=== PATIENT | female | born 1975 | race Caucasian/White ===

== ENCOUNTER → 2017-10-18 | Outpatient (CLI) | payer BC ==
[~2017-10-18] MED LIST: CLON0.5T3 PO; CYCL10TA9 PO; CYCL30CA PO; DICL50TA4 PO; ESCI20TA2 PO; FOLI0.4T2 PO; HYDR-3448 PO; HYDR-3720 PO; HYDR1TAB66 PO; HYDR1TAB71 PO; LEVE100015 PO; LEVE500T99 PO; MULT-608 PO; NAPR-243 PO; OXYC-12 PO; PNV71TAB2 PO; TRM50T PO
== END ==
LOC: CARD 11:30
PROVIDERS: ATTEND Physician Assistant
DX: Q79.6 Ehlers-Danlos syndromes (principal); I51.7 Cardiomegaly; I34.0 Nonrheumatic mitral (valve) insufficiency; E66.9 Obesity, unspecified
CPT/HCPCS: 93306

== ENCOUNTER 2021-03-19 05:43 | Outpatient (CLI) | payer BC ==
[~2021-03-19] VITALS: Ht 177.8 cm; Wt 112.6 kg
[2021-03-19] MEDS ORDERED: CYCL10TA9 PO (11:02)
[2021-03-19] MEDS ORDERED: CELE100C84 PO (11:02)
[2021-03-19] MEDS ORDERED: ALPR0.5T7 PO (11:02)
[2021-03-19] MEDS ORDERED: LEVE750T5 PO (11:02)
[2021-03-19] MEDS ORDERED: ESCI-2 PO (11:02)
[2021-03-20] MEDS ORDERED: ACHD5005 PO (12:34)
== END 2021-03-19 11:06 | disposition home or self-care (01) ==
LOC: PREOP 05:43
PROVIDERS: ATTEND Surgery
DX: Z01.818 Encounter for other preprocedural examination (principal)

== ENCOUNTER 2021-03-20 10:09 | Day surgery (SDC) | payer BC ==
[~2021-03-20] VITALS: Ht 177.8 cm; Wt 112.6 kg
[2021-03-20] VITALS (12 sets, daily range): BP systolic 117–151; BP diastolic 66–102
[~2021-03-20 10:09] MED LIST changes: +ALPR0.5T7 PO; +CELE100C84 PO; +ESCI-2 PO; +LEVE750T5 PO
[2021-03-20] MEDS ORDERED: LACTATED RINGERS 1,000 ML IV PRN (10:45)
[2021-03-20] MEDS ORDERED: ceFAZolin 2 GM IV Premixed 50 ML IV ONE (10:45)
[2021-03-20] MEDS ORDERED: LIDOCAINE/EPI 1%-1:200,000 (XYLOCAINE) 30 ML VIAL ONE (10:53)
[2021-03-20] MEDS ORDERED: fentaNYL INJ 100 MCG/2 ML AMP ONE (11:08)
[2021-03-20] MEDS ORDERED: MIDAZOLAM 2 MG/2 ML (VERSED) VIAL ONE (11:08)
[2021-03-20] MEDS ORDERED: LIDOCAINE PF 2% 5 ML (XYLOCAINE) VIAL ONE (11:08)
[2021-03-20] MEDS ORDERED: SEVOFLURANE (ULTANE) 15 ML INHAL SOLN ONE (11:08)
[2021-03-20] MEDS ORDERED: proPOfol 200 MG/20 ML (DIPRIVAN) VIAL IV ONE (11:08)
--- NOTE | 2021-03-20 12:28 | Progress Note-Pre Operative ---
Pre-Operative Progress Note H&P Reviewed The H&P was reviewed, patient examined and no changes noted. Date Seen by Provider: Mar 20, 2021 Time Seen by Provider: 10: Date H&P Reviewed: Mar 20, 2021 Time H&P Reviewed: : Pre-Operative Diagnosis: sx bilat elbow, abd x2, and back lesions CHICHI KIM MD Mar 20, 2021 12:28
--- NOTE | 2021-03-20 12:31 | Progress Note-Post Operative ---
Post-Operative Progess Note Surgeon (s)/Clinical Laboratory Service Teacher (s) Surgeon CHICHI KIM MD Clinical Laboratory Service Teacher: none Pre-Operative Diagnosis sx bilat elbow, abd x2, and back lesions Post-Operative Diagnosis same, each subcutaneous and 1cm Procedure & Operative Findings Date of Procedure 03/20/21 Procedure Performed/Findings excision subcutaneous bilat elbow lesion, abd lesion x2, back lesion. Anesthesia Type general LMA with local Estimated Blood Loss Estimated blood loss (mL): minimal Specimens/Packing Specimens Removed lesions stated above. CHICHI KIM MD Mar 20, 2021 12:31
[2021-03-20] MEDS ORDERED: ACHD5005 PO (12:34)
--- NOTE | 2021-03-20 12:35 | Discharge Inst-Surgical ---
D/C Lap Instructions-JULIO New, Converted, or Re-Newed RX: RX on Chart Follow Up Appt in 1 week Activity as tolerated Regular Diet Symptoms to Report: Fever over 101 degree F, Nausea/Vomiting Infection Signs and Symptoms to report: Increased redness, Foul odor of wound, Increased drainage Bathing instructions: May shower Operative Area Clean/Dry; Keep incision clean/dry If any problems/questions: Contact your physician or go to Emergency Room CHICHI KIM MD Mar 20, 2021 12:35
[2021-03-20] MEDS ORDERED: ACETAMINOPHEN 325 MG TABLET PO PRN (12:45)
[2021-03-20] MEDS ORDERED: fentaNYL INJ 100 MCG/2 ML AMP IVP PRN (12:45)
[2021-03-20] MEDS ORDERED: HYDROcodone/APAP 5 MG/325 MG (LORTAB) TAB PO PRN (12:45)
--- NOTE | 2021-03-20 13:15 | Anesthesia-General Post-Op ---
General Patient Condition Mental Status/LOC: Same as Preop Cardiovascular: Satisfactory Nausea/Vomiting: Absent Respiratory: Satisfactory Pain: Controlled Complications: Absent Post Op Complications Complications None Follow Up Care/Instructions Patient Instructions None needed. Anesthesia/Patient Condition Patient Condition Patient is doing well, no complaints, stable vital signs, no apparent adverse anesthesia problems. No complications reported per nursing. THELMA EMERSON CRNA Mar 20, 2021 13:15
--- NOTE | 2021-03-20 18:23 | OPERATIVE REPORT ---
DATE OF SERVICE: 03/20/2021 ATTENDING PRIMARY CARE PHYSICIAN: Courtney Bella MD PREOPERATIVE DIAGNOSIS: Symptomatic lesions, bilateral elbows, abdominal wall x2, upper back. POSTOPERATIVE DIAGNOSIS: Symptomatic lesions, bilateral elbows, abdominal wall x2, upper back, likely benign symptomatic lipomas all 1 cm in size. PROCEDURE: Excision of subcutaneous lesions, 1 cm in size, bilateral elbows abdominal wall x2, back x1. SURGEON: Chichi Kim MD ANESTHESIA: General laryngeal mask airway with local. ESTIMATED BLOOD LOSS: Minimal. FINDINGS: Same as postoperative diagnosis. DISPOSITION: The patient tolerated the procedure well. INDICATIONS: The patient is a 45-year-old female known to us. 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 She has had these symptomatic was removed in the past. She has developed several symptomatic lesions again, bilateral elbows along the extensor surface, two of the abdominal wall, one superior and one inferior as well as one of the upper back. These appeared to be again benign lipomas, each 1 cm in size. Each location was prepped and draped in standard surgical fashion and 1% lidocaine with epinephrine was used to anesthetize the overlying skin. Skin incisions were made along the glabellar lines and the lesion identified and dissected out using blunt dissection as well as electrocautery and specimens were sent to pathology. Each skin incision was then closed using 0 Prolene interrupted sutures. Wounds were then cleaned and covered with Band-Aids. The patient tolerated the procedure well. We will start IV normal pain medication as well as a clear liquid diet. Once he is tolerating clears, has good pain control with oral pain medications, ambulating well, we will discharge her home. She will be instructed to keep the areas clean and dry. Job ID: [id number] DocumentID: [id number] Dictated Date: 03/20/2021 12:40:45 [employer] Leader Date: 03/20/2021 18:23:15 Dictated By: CHICHI KIM MD [facility]
== END 2021-03-20 15:22 | disposition home or self-care (01) ==
LOC: SDC 10:09
PROVIDERS: ATTEND Surgery
DX: M79.89 Other specified soft tissue disorders (principal); D17.22 Benign lipomatous neoplasm of skin and subcutaneous tissue of left arm; D17.21 Benign lipomatous neoplasm of skin and subcutaneous tissue of right arm; G40.909 Epilepsy, unspecified, not intractable, without status epilepticus; Q87.40 Marfan syndrome, unspecified; Q79.60 Ehlers-Danlos syndrome, unspecified; F17.200 Nicotine dependence, unspecified, uncomplicated; F41.9 Anxiety disorder, unspecified; F32.A Depression, unspecified; Z79.891 Long term (current) use of opiate analgesic; Z79.899 Other long term (current) drug therapy; I95.1 Orthostatic hypotension; Z83.3 Family history of diabetes mellitus; Z80.3 Family history of malignant neoplasm of breast
CPT/HCPCS: 87081

== ENCOUNTER → 2021-08-07 | Outpatient (CLI) | payer BC ==
[~2021-08-07] MED LIST changes: +ACHD5005 PO; +CYCL10TA25 PO
== END ==
LOC: CARD 09:19
PROVIDERS: ATTEND Internal Medicine Cardiovascular Disease
DX: I51.7 Cardiomegaly (principal)
CPT/HCPCS: 93306

== ENCOUNTER → 2021-08-12 | Outpatient (CLI) | payer BC ==
[~2021-08-12] MED LIST changes: +CATHETER FLUSH 10 ML SYR IVP PRN
[2021-08-12 13:40] VITALS: BP 117/66
--- NOTE | 2021-08-12 15:57 | Cardiology Stress Test Report ---
Stress Test Report Date of Procedure/Referring: Date of Procedure: Aug 12, 2021 PCP Michelet Quiñones MD Admitting Physician Courtney Bella MD Indications: Palpitation Baseline Heart Rate: 64 Baseline Blood Pressure: Blood Pressure Systolic: 117 Blood Pressure Diastolic: 66 Vital Signs Date Time Temp Pulse Resp B/P (MAP) Pulse Ox O2 Delivery O2 Flow Rate FiO2 08/12/21 13:40 64 117/66 (83) Baseline Vital Signs Vital Signs Date Time Temp Pulse Resp B/P (MAP) Pulse Ox O2 Delivery O2 Flow Rate FiO2 08/12/21 13:40 64 117/66 (83) Baseline EKG: Baseline EKG: NSR Summary: After explaining the procedure and details to the patient, she signed the consent and was brought to the stress nuclear laboratory. Patient exercised on standard Jordon protocol, EKG, heart rate and blood pressure were monitored continuously, resting and stress doses of radio tracer were injected, imaging was acquired and reviewed in the short axis, horizontal long axis and vertical long axis views Patient was able to exercise for a total of 9 minutes on Jordon protocol, METs 10.5 Maximum heart rate 164 Maximum blood pressure 164/81 Stress EKG, Minimal nondiagnostic changes Recovery EKG, Return to baseline TID: 1.13 SSS: 4 SDS: 4 EF: 61 Conclusion: 1. Excellent exercise tolerance for a total of 9 minutes on standard Jordon protocol, 10.5 METS achieving 93% of maximal expected heart rate 2. Appropriate heart rate and blood pressure response to exercise return to baseline during recovery 3. Minimal nondiagnostic EKG changes with exercise return to baseline during recovery 4. Breast attenuation with mild reversible ischemia involving the mid to apical anterior wall 5. Normal left ventricular size, normal contractility, ejection fraction 61% MICHELET QUIÑONES MD Aug 12, 2021 15:57
== END ==
LOC: CARD 12:45
PROVIDERS: ATTEND Internal Medicine Cardiovascular Disease
DX: I25.10 Atherosclerotic heart disease of native coronary artery without angina pectoris (principal); I10 Essential (primary) hypertension
CPT/HCPCS: 78452; 93017; A9502

== ENCOUNTER → 2021-08-12 | Day surgery (SDC) | payer BC ==
[~2021-08-12] VITALS: Ht 177.8 cm; Wt 112.6 kg
[~2021-08-12] MED LIST changes: -CATHETER FLUSH 10 ML SYR IVP PRN; +LIDOCAINE 1% INJ 50 ML (XYLOCAINE) VIAL IJ ONE; +LIDOCAINE 1% INJ 50 ML (XYLOCAINE) VIAL ONE
[2021-08-12 11:30] VITALS: BP 109/77
--- NOTE | 2021-08-12 11:45 | Implantation of Loop Monitor ---
Implant of Loop Monitior IMPLANTATION OF LOOP MONITOR REPORT DATE OF PROCEDURE: 08/12/21 PREOP DIAGNOSIS: Paroxysmal supraventricular tachycardia POSTOP DIAGNOSIS: Paroxysmal supraventricular tachycardia PROCEDURE DETAILS: The patient is a 45 female with history of paroxysmal supraventricular tachycardia, has history of ablation, has been having increasing episodes of palpitation requiring long-term surveillance. Therefore implantable loop recorder was discussed and agreed with the patient. Informed consent was taken. All risks and complications were discussed at length. The patient was draped and prepped in the usual sterile fashion. Local anesthesia was lidocaine, which was given in the substernal area close to the 4th intercostal space. Loop monitor PST [employer] with serial number [id number] was implanted according to the protocol. Steri-Strips were placed at the end of the procedure. There were no complications and the patient tolerated the procedure well. The device was interrogated with a voltage of. ANESTHESIA: Local anesthesia with lidocaine. COMPLICATIONS: None CONTRAST/FLUOROSCOPY: None CONCLUSION: Successful implantation of loop monitor with no complication FINAL DIAGNOSIS: Paroxysmal supraventricular tachycardia Palpitation Hypertension MICHELET SHEPARD MD Aug 12, 2021 11:45
== END | disposition home or self-care (01) ==
LOC: CATH 10:19
PROVIDERS: ATTEND Internal Medicine Cardiovascular Disease
DX: I47.1 Supraventricular tachycardia (principal); R00.2 Palpitations; I10 Essential (primary) hypertension; Q87.40 Marfan syndrome, unspecified; Q79.60 Ehlers-Danlos syndrome, unspecified; G40.909 Epilepsy, unspecified, not intractable, without status epilepticus; Z87.891 Personal history of nicotine dependence; Z79.899 Other long term (current) drug therapy
CPT/HCPCS: 33285; C1764

== ENCOUNTER 2021-09-02 13:00 | Day surgery (SDC) | payer BC ==
[2021-09-02] VITALS (10 sets, daily range): BP systolic 94–148; BP diastolic 54–117
[2021-09-02 11:22] LABS: HEMATOCRIT 45 % (35-52); HEMOGLOBIN 15.1 g/dL (11.5-16.0); MEAN CORPUSCULAR HEMOGLOBIN 30 pg (25-34); MEAN CORPUSCULAR HGB CONC 34 g/dL (32-36); MEAN CORPUSCULAR VOLUME 90 fL (80-99); MEAN PLATELET VOLUME 10.7 fL (9.0-12.2); PLATELET COUNT 268 10^3/uL (130-400); WHITE BLOOD COUNT 8.4 10^3/uL (4.3-11.0)
[2021-09-02 11:35] LABS: PROTHROMBIN TIME PATIENT 13.3 SEC (12.2-14.7)
--- NOTE | 2021-09-02 11:47 | Diagnostic Imaging Report ---
INDICATION: Chest pain Portable chest 11:20 AM Heart size and pulmonary vascularity are normal. Lungs are clear. There are no effusions or pneumothoraces. There is a loop recorder projecting over the left lower chest. IMPRESSION: No acute abnormalities in the chest Dictated by: Dictated on workstation # [id number]
[2021-09-02 11:54] LABS: ALBUMIN 4.3 GM/DL (3.2-4.5); BILIRUBIN,TOTAL 0.4 MG/DL (0.1-1.0); CALCIUM 9.4 MG/DL (8.5-10.1); CREATININE SERUM 0.92 MG/DL (0.60-1.30); POTASSIUM 4.1 MMOL/L (3.6-5.0); TOTAL PROTEIN 7.6 GM/DL (6.4-8.2)
--- NOTE | 2021-09-02 12:07 | Conscious Sedation/ASA ---
Conscious Sedation Pre-Proced Time 12:07 ASA Score 3 For ASA 3 and 4: Consider anesthesia and medical clearance. Also, for patients with a history of failed moderate sedation consider anesthesia. Airway Lungs Heart ASA score ASA 1: a normal healthy patient ASA 2: a patient with a mild systemic disease (mid diabetes, controlled hypertension, obesity x ASA 3: a patient with a severe systemic disease that limits activity (angina, COPD, prior Myocardial infarction) ASA 4: a patient with an incapacitating disease that is a constant threat to life (CHF, renal failure) ASA 5: a moribund patient not expected to survive 24 hrs. (ruptured aneurysm) ASA 6: a declared brain- patient whose organs are being harvested. For emergent operations, add the letter E after the classification Mallampati Classification Grade 3 Sedation Plan Analgesia, Amnesia, Plan communicated to team members, Discussed options with patient/fam, Discussed risks with patient/fam The patient is an appropriate candidate to undergo the planned procedure, sedation, and anesthesia. The patient immediately re-assessed prior to indication. MICHELET SHEPARD MD Sep 02, 2021 12:07
--- NOTE | 2021-09-02 12:36 | Discharge Inst-Post CATH ---
Discharge Inst-CATH/EP Problems Reviewed?: Yes Post Cardiac Cath/EP D/C Inst Follow Up/Plan Appointment with Dr. Quiñones's office in 2 to 4 weeks <b>CARDIAC CATH/EP PROCEDURE DISCHARGE INSTRUCTIONS</b> ACTIVITY * Go Home directly and rest. * Limit activity of the leg (or wrist if it was used) for 7 days including aer obics, swimming, jogging, bicycling, etc. * Restrict stair-climbing for 7 days if possible, if not, climb up with your non-cath leg, then bring together on the same step. * Avoid lifting, pushing, pulling or excessive movement of the affected extremi ty for 7 days. * Customary sexual activity may be resumed after 2 days-use caution not to use a position that strains or causes pain to the affected extremity. * No driving for 24 hours. * NO SMOKING. * Avoid straining for bowel movements for 7 days. * Gentle walking on level ground is allowed. * Returning to work will depend on the type of procedure and the results. Your doctor will discuss this with you. CALL YOUR DOCTOR FOR ANY OF THE FOLLOWING: *If bleeding from the puncture site occurs- Apply gentle pressure to site with clean cloth and call your doctor or EMS. * If a knot or lump forms under the skin, increases in size, or causes pain. * If bruising appears to be worsening or moving further down your leg instead of disappearing. * Temperature above 101 F. CARE OF YOUR GROIN INCISION; * Bruising or purple discoloration of the skin near the puncture site is common. * You may shower only, no bathtub bathing for 5 days. Be careful to avoid slipping as your leg may feel stiff. * If a closure device was used on your femoral artery, please see the attached guide regarding care of the device and your leg. * Leave dressing on FOR 24 hours. CARE OF YOUR WRIST INCISION; * Bruising or purple discoloration of the skin near the puncture site is common. * You may shower. * DO NOT submerge wrist. * Leave dressing on FOR 24 hours. MICHELET QUIÑONES MD Sep 02, 2021 12:36
--- NOTE | 2021-09-02 12:42 | Cardiac Cath Report ---
Cardiac Cath Report Physician (s)/Truck Sales Manager (s) Physician MICHELET SHEPARD MD Pre-Procedure Diagnosis Pre-Procedure Diagnosis: Coronary artery disease Post-Procedure Note Procedure Start Date: Sep 02, 2021 Name of Procedure: Left heart catheterization Findings/Procedure Note PROCEDURE NOTE: 45-year-old lady with history of chest pain, palpitation, anxiety, had an abnormal stress test scheduled for cardiac catheterization possible PTCA. After explaining the procedure to the patient, all pros and cons were explained, all questions were answered. The patient signed the consent and then she was placed on the cardiac catheterization laboratory. Groin was prepped SL fashion local anesthesia was used. Sheath placed in the right radial artery, Dexter catheter advanced to the left ventricular cavity, pressure was measured, pullback LV to aorta was done, engaged the right and left coronary system, angiogram was done. At the end of the procedure the sheath was removed. Closure device was used FINDINGS: Hemodynamics LV 111/13, end-diastolic pressure of 13 Aorta 93/66 mean of 75 ANATOMY: Left Main is free of obstructive disease Left Anterior Descending is large artery with no significant obstructive disease Left Circumflex has no significant obstructive disease Right Coronary Artery is dominant artery with mild disease nonobstructive disease LV Gram was not done, pressure was measured CONCLUSION: 1. Mild coronary artery disease, nonobstructive disease 2. Normal left ventricular end-diastolic pressure DISCUSSION AND RECOMMENDATION: Chest pain is probably noncardiac, abnormal stress test is due to extracardiac attenuation Anesthesia Type: Conscious Sedation Estimated blood loss (mL): 10 ml Contrast Amount: 34 mlk Total Radiation Dose: 317 mGy Post-Procedure Diagnosis Post-operative diagnosis: Chest pain Hypertension Hyperlipidemia Anxiety MICHELET SHEPARD MD Sep 02, 2021 12:41
[~2021-09-02 13:00] MED LIST changes: +ACET-2650 PO; +HEParin (CATH LAB) 2,000 ML IV ONE; +HEParin 1000 UNIT/ML (10ML VIAL) FOR BOLUS ONE; -LIDOCAINE 1% INJ 50 ML (XYLOCAINE) VIAL IJ ONE; +MIDAZOLAM 2 MG/2 ML (VERSED) VIAL ONE; +MIDAZOLAM 5 MG/5 ML (VERSED) VIAL ONE; +NITRO DRIP 25000 MCG/D5W 250 ML IV ONE; +NS IV 1000 ML 1,000 ML IV SCH; +NS IV 1000 ML 1,000 ML ONE; +VERAPAMIL 5 MG/2 ML (CALAN) VIAL IV ONE; +fentaNYL INJ 100 MCG/2 ML AMP ONE
== END 2021-09-02 15:25 | disposition home or self-care (01) ==
LOC: CATH 13:00 → SDC 13:00 → CATH 15:25
PROVIDERS: ATTEND Internal Medicine Cardiovascular Disease
DX: I25.10 Atherosclerotic heart disease of native coronary artery without angina pectoris (principal); I10 Essential (primary) hypertension; F41.9 Anxiety disorder, unspecified; Q87.40 Marfan syndrome, unspecified; G40.909 Epilepsy, unspecified, not intractable, without status epilepticus; Q79.60 Ehlers-Danlos syndrome, unspecified; Z87.891 Personal history of nicotine dependence
CPT/HCPCS: 71045; 80053; 80061; 85027; 85610; 85730; 87081; 93005; 93458; C1894; 36415